=== PATIENT | female | born 1995 | race African-American/Black ===

== ENCOUNTER 2023-02-10 08:57 | Outpatient (AMB) | payer MEDICAID, SELFPAY ==
--- NOTE | 2023-02-10 08:59 | A.OFFVIS_ITS ---
Intake Vital Signs 02/10/23 09:02 Height 5 ft 6 in Weight 181 lb 7.047 oz BMI 29.3 BP 114/84 Blood Pressure Location Lt brachial Position Sitting Pulse 106 H Pulse Source Pulse Oximeter Intake Visit Reasons: T1DM/LVM Intake Note: New patient present today for Diabetes Mellitus. Referred by PCP Last Diabetic Eye exam: 2020 Last Podiatry Visit: None Random Glucose: 137 mg/dl HgA1C: 11.2% Sports Anchor Required: No Accompanied by: Self / Same As Patient Allergies tomato [TOMATO] Allergy (Intermediate, Verified 02/10/23 09:03) FACIAL SWELLING/ITCHY THROAT Medication List - Last Reconciled 02/10/23 by Elvin Calderon MD blood-glucose sensor (Dexcom G7 Sensor device) As directed change every 10 days insulin glargine (Lantus Solostar U-100 Insulin) 22 units subcut QPM pen needle, diabetic (BD Ultra-Fine Cadence Pen Needle) As directed phentermine 15 mg PO QAM HPI HPI Comments History of Present Illness Details 27 YO F with is seen in consultation for T1DM at the request of PCP. Initially diagnosed with T1DM in 6 yrs when presented with DKA . Was initially started on treatment with []. Current regimen: Lantus 22 units Humalog 150-200 2 units up to 10 units Per the CGM Kostas is active % of time . . Avg glucose is 28 . Variability of 35 The patient's blood sugars were in target 13% of the time, above target 84% of the time, and below target 3% of the time Most recent A1C: 11.2 Reports low sugars once a wk . Treats lows with eats something . Checks sugar after to ensure it is rising. Checks 2 hours after No Family history of autoimmunity Has eyes checked yearly, last eye exam 2020 . Needs to make appt , No retinopathy. Denies neuropathy, last foot exam [], sees podiatry. Denies nephropathy, Not on PRO/ARB. . Not Has HLD, Not on statin. Denies history of CAD. Had diabetes education many yrs a go . Diet/Carb counting: No Denies prior episodes of DKA. Not Has prior severe episodes of hypoglycemia requiring help or hospitalization. Labs: [facility] Medical History (Updated 02/10/23 @ 09:04 by Elvin Calderon MD) Uncontrolled type 1 diabetes mellitus with hyperglycemia, with long-term current use of insulin Family History (Updated 02/10/23 @ 09:17 by Herlinda Ayala) Mother No problems noted. Father Hypertension Social History (Updated 02/10/23 @ 09:14 by Herlinda Ayala) Alcohol intake: current Alcohol intake frequency: holidays/special occasions only Substance Use Type: Marijuana Physical Exam Vital Signs: Last Vital Signs Pulse 106 H 02/10/23 09:02 BP 114/84 02/10/23 09:02 BMI result Body Mass Index 29.3 Absence of Cushingoid features. Absence of acromegalic features. Neck exam reveals nl size thyroid about 15 gms. No thyroid nodules palpable. No carotid bruits present. Lungs CTA. Heart S1 S2, Reg R/R. No M/R/ G. Skin exam reveals absence of vitiligo or acanthosis nigricans. Abdominal exam reveals Soft NT/ND with NA BS. No organomegaly present. Extrem Other: Visual exam of foot performed. No ulcerations or open lesions. No onchomycosis, no callouses.Pulses 2 + distally. Sensation intact to monofilament exam. Vibratory sensation sensed 10 seconds in right, 10 seconds in left with 128 Hz tuning fork Results AMB Hemoglobin A1c AMB Hemoglobin A1c 11.2 % Last Edit by Herlinda Ayala on 02/10/23 09:22 Results Reviewed Results Reviewed: 02/10/23 09:11 Glucose, Whole Blood Routine Laboratory Last Values Glucose (Clinic) 137 mg/dL (60-115) H 02/10/23 09:11 Hgb A1c (Clinic) 11.2 % (4.0-6.0) H 02/10/23 09:17 Assessment & Plan Assessment & Plan (1) Uncontrolled type 1 diabetes mellitus with hyperglycemia, with long-term current use of insulin: Code(s): E10.65 - Type 1 diabetes mellitus with hyperglycemia Plan: This is a 27-year-old female with history of type 1 diabetes being treated with basal insulin with poor glycemic control and no known microvascular or macrovascular complications. Plan is to switch the Kostas to Dexcom G7. Could not make any changes the patient's insulin regimen because there was not enough data. Went over the benefits of using a pump explained different pumps. . Will also send to critical care educator and extrusion die template maker. Explained to patient relationship poor glycemic control development progression complications Orders: Orders AMB Hemoglobin A1c Today E10.65 - Type 1 diabetes mellitus with hyperglycemia Referrals Diabetes Education Referral E10.65 - Type 1 diabetes mellitus with hyperglycemia Nutrition/Dietitian Referral E10.65 - Type 1 diabetes mellitus with hyperglycemia Medications: New blood-glucose sensor (Dexcom G7 Sensor device) As directed change every 10 days 3 ea 4RF Coding Level of Care Code New Pt Level 5 (59276) Diagnoses Uncontrolled type 1 diabetes mellitus with hyperglycemia, with long-term current use of insulin E10.65 Time Spent (min) 60 Comment A total of 60 minutes was spent reviewing chart, seeing patient and dictating
[2023-02-10 09:02] VITALS: BP 114/84; PULSE 106; BMI 29.3
[2023-02-10 09:15] LABS: Glucose, Whole Blood 137 mg/dL (60-115)
== END 2023-02-10 10:00 | disposition home or self-care (01) ==
PROVIDERS: PCP Family Medicine; Referring Provider Family Medicine; Visit Provider Internal Medicine Endocrinology, Diabetes & Metabolism
DX: E10.65 Type 1 diabetes mellitus with hyperglycemia (principal); Z79.4 Long term (current) use of insulin
CPT/HCPCS: 99205

== ENCOUNTER → 2023-02-10 08:57 | Outpatient (BNVA) | payer MEDICAID, SELFPAY | PROVIDERS: Visit Provider Internal Medicine Endocrinology, Diabetes & Metabolism | DX: E10.65 Type 1 diabetes mellitus with hyperglycemia (principal); Z79.4 Long term (current) use of insulin | CPT/HCPCS: 82947; 83036; 99202 ==

== ENCOUNTER 2023-11-01 11:20 | Outpatient (AMB) | payer SELFPAY ==
--- NOTE | 2023-11-01 11:21 | A.OFFVIS_ITS ---
Vital Signs 11/01/23 11:22 Height 5 ft 6 in Weight 181 lb 10.574 oz BMI 29.3 BP 128/90 H Blood Pressure Location Lt brachial Position Sitting Pulse 86 Pulse Source Pulse Oximeter Intake Visit Reasons: T1DM/LVM Intake Note: Patient presents today to follow up on D1MT. Last Diabetic Eye exam: Over a year Last Podiatry Visit: Doesn't have one Random Glucose: 338 mg/dl HgA1c: 10.0% Cage Operator Required: No Accompanied by: Self / Same As Patient Allergies tomato [TOMATO] Allergy (Intermediate, Verified 11/01/23 11:27) FACIAL SWELLING/ITCHY THROAT Medication List - Last Reconciled 11/01/23 by Elvin Claderon MD blood-glucose sensor (Dexcom G7 Sensor device) As directed change every 10 days ibuprofen mg PO insulin glargine (Lantus Solostar U-100 Insulin) 22 units subcut QPM insulin lispro subcut pen needle, diabetic (BD Ultra-Fine Cadence Pen Needle) As directed phentermine 15 mg PO QAM HPI Comments Details: 28 YO F with is seen in consultation for T1DM at the request of PCP. Initially diagnosed with T1DM in 6 yrs when presented with DKA . Was initially started on treatment with []. Current regimen: Lantus 22 units Humalog 150-200 2 units up to 10 units Unfortunately, patient did not bring sensor, glucometer or meter with her to follow-up visit Reports low sugars once a wk . Infreqently Treats lows with eats something . Checks sugar after to ensure it is rising. Checks 2 hours after No Family history of autoimmunity Has eyes checked yearly, last eye exam . Needs to make appt , No retinopathy. Denies neuropathy, last foot exam [], sees podiatry. Denies nephropathy, Not on PRO/ARB. . Not Has HLD, Not on statin. Denies history of CAD. Had diabetes education many yrs a go . Needs to make appt Diet/Carb counting: No Denies prior episodes of DKA. Not Has prior severe episodes of hypoglycemia requiring help or hospitalization. Labs: [facility] Medical History (Updated 02/10/23 @ 09:04 by Elvin Calderon MD) Uncontrolled type 1 diabetes mellitus with hyperglycemia, with long-term current use of insulin Family History (Updated 02/10/23 @ 09:17 by CHRISTOPHER Valladares) Mother No problems noted. Father Hypertension Social History (Updated 02/10/23 @ 09:14 by CHRISTOPHER Valladares) Alcohol intake: current Alcohol intake frequency: holidays/special occasions only Substance Use Type: Marijuana Physical Exam Vital Signs: Last Vital Signs Pulse 86 11/01/23 11:22 BP 128/90 H 11/01/23 11:22 BMI result Body Mass Index 29.3 Absence of Cushingoid features. Absence of acromegalic features. Neck exam reveals nl size thyroid about 15 gms. No thyroid nodules palpable. No carotid bruits present. Lungs CTA. Heart S1 S2, Reg R/R. No M/R/ G. Skin exam reveals absence of vitiligo or acanthosis nigricans. Abdominal exam reveals Soft NT/ND with NA BS. No organomegaly present. Extrem Other: Visual exam of foot performed. No ulcerations or open lesions. No onchomycosis, no callouses.Pulses 2 + distally. Sensation intact to monofilament exam. Vibratory sensation sensed 10 seconds in right, 10 seconds in left with 128 Hz tuning fork Results AMB Hemoglobin A1c AMB Hemoglobin A1c 10.0 % Last Edit by CHRISTOPHER Valladares on 11/01/23 11:39 Results Reviewed Results Reviewed: Laboratory Last Values Glucose (Clinic) 338 mg/dL (60-115) H 11/01/23 11:29 Assessment & Plan Assessment & Plan (1) Uncontrolled type 1 diabetes mellitus with hyperglycemia, with long-term current use of insulin: Code(s): E10.65 - Type 1 diabetes mellitus with hyperglycemia Category: Medical Plan: This is a 28-year-old female with history of type 1 diabetes being treated with basal insulin with poor glycemic control and no known microvascular or macrovascular complications. Plan is to have the patient resume sensory use.. Could not make any changes the patient's insulin regimen because there was no data. I renewed her Dexcom G7 sensor Went over the benefits of using a pump explained different pumps. . Will also send to homicide detective and solar/renewable energy sales. Explained to patient relationship poor glycemic control development amd progression complications Orders: Orders Microalbumin, Random (w Creat) Today E10.65 - Type 1 diabetes mellitus with hyperglycemia AMB Hemoglobin A1c Today E10.65 - Type 1 diabetes mellitus with hyperglycemia, Z13.9 - Encounter for screening, unspecified Lipid Panel Today E10.65 - Type 1 diabetes mellitus with hyperglycemia Medications: Refilled blood-glucose sensor (Dexcom G7 Sensor device) As directed change every 10 days 3 ea 5RF Coding Level of Care Code Est Pt Level 4 (23113) Diagnoses Uncontrolled type 1 diabetes mellitus with hyperglycemia, with long-term current use of insulin E10.65
[2023-11-01 11:22] VITALS: BP 128/90; PULSE 86; BMI 29.3
[2023-11-01 11:33] LABS: Glucose, Whole Blood 338 mg/dL (60-115)
== END 2023-11-01 11:40 | disposition home or self-care (01) ==
PROVIDERS: PCP Family Medicine; Visit Provider Internal Medicine Endocrinology, Diabetes & Metabolism
DX: Z13.9 Encounter for screening, unspecified (principal); E10.65 Type 1 diabetes mellitus with hyperglycemia
CPT/HCPCS: 99214

== ENCOUNTER → 2023-11-01 11:20 | Outpatient (BNVA) | payer OTHER, SELFPAY | PROVIDERS: PCP Family Medicine; Visit Provider Internal Medicine Endocrinology, Diabetes & Metabolism | DX: E10.65 Type 1 diabetes mellitus with hyperglycemia (principal); Z79.4 Long term (current) use of insulin | CPT/HCPCS: 82947; 83036; 99212 ==

== ENCOUNTER 2024-05-10 08:40 | Outpatient (AMB) | payer MEDICAID, SELFPAY ==
--- NOTE | 2024-05-10 07:10 | A.OFFVIS_ITS ---
Vital Signs 05/10/24 08:44 Height 5 ft 6 in Weight 172 lb 13.478 oz BMI 27.9 BP 112/74 Blood Pressure Location Lt brachial Position Sitting Pulse 87 Pulse Source Pulse Oximeter Intake Visit Reasons: T1DM/CONF Intake Note: Patient presents today for D1MT follow up visit. Last Diabetic Eye exam: 08/2023 Last Podiatry Visit: Doesn't have one Random Glucose: 58 mg/dl @ 8:51 am, 55 mg/dl 9:24 am, 93 mg/dl 9:43 am. Glucose tabs were given by provider. HgA1c: 9.4% Housekeeping/Laundry Supervisor Required: No Accompanied by: Self / Same As Patient Allergies tomato [TOMATO] Allergy (Intermediate, Verified 05/10/24 08:48) FACIAL SWELLING/ITCHY THROAT HPI Comments Details: 28 YO F with is seen in f/u for T1DM. She was last seen by Dr. Calderon 10/2023. Hemoglobin A1c 9.4 % 05/03/24, 01/04 10%. She has a long standing history of poorly controlled diabetes. On presentation to the clinic her glucose reading is 68 and she feels symptomatic. She was given 14 car grams of gingerale to drink at 8:54. Repeat glucose was:55 at 9:25 for which she took 3 glucose tablets. Repeat blood sugar was 93 and patient was asymptomatic. She has had some lower abdominal pain and was seen in the ER 6 days ago and started on antibiotics for UTI and symptoms are improving. She does not yet have f/u with her PCP. Initially diagnosed with T1DM at age 21 when she presented with DKA . Was initially started on treatment with insulin Current regimen: Lantus 22 units at night Humalog 2 units if she has a big meal Not taking very often not eating regularly last few days NO recent glucose checks Low glucose: this morning which she attributes to eating less one a few weeks ago Treats lows: eats something, she carries a sugar source Checks sugar after to ensure it is rising. No Family history of autoimmunity No retinopathy: Has eyes checked yearly, last eye exam 09/04. Has cataract surgery early 's Denies neuropathy, last foot exam today , does not see podiatry self care No recent labs in chart Denies nephropathy, Not on PRO/ARB. . Denies HLD, Not on statin. Denies history of CAD. Had diabetes education many yrs ago. Needs to make appt Diet/Carb counting: No carb counting Denies prior episodes of DKA. Not Has prior severe episodes of hypoglycemia requiring help or hospitalization. [facility] Medical History (Updated 02/10/23 @ 09:04 by Elvin Calderon MD) Uncontrolled type 1 diabetes mellitus with hyperglycemia, with long-term current use of insulin Family History (Updated 02/10/23 @ 09:17 by CHRISTOPHER Valladares) Mother No problems noted. Father Hypertension Social History (Updated 02/10/23 @ 09:14 by CHRISTOPHER Valladares) Alcohol intake: current Alcohol intake frequency: holidays/special occasions only Substance Use Type: Marijuana Physical Exam Vital Signs: Last Vital Signs Pulse 87 05/10/24 08:44 BP 112/74 05/10/24 08:44 BMI result Body Mass Index 27.9 Const Other: Absence of Cushingoid features. Absence of acromegalic features. Neck exam reveals nl size thyroid about 15 gms. No thyroid nodules palpable. No carotid bruits present. Lungs CTA. Heart S1 S2, Reg R/R. No M/R G. Skin exam reveals absence of vitiligo or acanthosis nigricans. No edema Visual exam of foot performed. No ulcerations or open lesions. No inter digit maceration or fissuring. No onychomycosis, no callouses. Sensation intact to monofilament exam. Vibratory sensation is normal with 128 Hz tuning fork. Results AMB Hemoglobin A1c AMB Hemoglobin A1c 9.4 % Last Edit by CHRISTOPHER Valladares on 05/10/24 09:00 Results Reviewed Results Reviewed: Laboratory Last Values Glucose (Clinic) 58 mg/dL (60-115) L* 05/10/24 08:50 Hgb A1c (Clinic) 9.4 % (4.0-6.0) H 05/10/24 08:53 Assessment & Plan Assessment & Plan (1) Uncontrolled type 1 diabetes mellitus with hyperglycemia, with long-term current use of insulin: Code(s): E10.65 - Type 1 diabetes mellitus with hyperglycemia Category: Medical Plan: 28-year-old type 2 diabetic with poorly controlled diabetes on basal bolus insulin. Change to Tresiba 20 units. Can restart humalog 2 units with meals. If sugara are running high can restart old scale 2-8 units. Start on FS kostas 3. Obtain labs toay The patient had an opportunity to ask questions regarding treatment plan. The patient expressed understanding and agreement with the above treatment plan. The patient is aware they should contact our office by phone for worsening glucose readings or for any low blood sugars which may warrant a change in diabetes medication. Compliance is encouraged with medications and any followup testing/consults which may have been ordered. Orders: Orders Basic Metabolic Panel Today E10.65 - Type 1 diabetes mellitus with hyperglycemia AMB Hemoglobin A1c Today E10.65 - Type 1 diabetes mellitus with hyperglycemia, Z13.9 - Encounter for screening, unspecified Lipid Panel Today E10.65 - Type 1 diabetes mellitus with hyperglycemia Microalbumin, Random (w Creat) Today E10.65 - Type 1 diabetes mellitus with hyperglycemia Creatinine Urine Today E10.65 - Type 1 diabetes mellitus with hyperglycemia Medications: New insulin degludec (Tresiba FlexTouch U-200 insulin) 20 units (0.1 mL) subcut BEDTIME 6 mL 11RF pen needle, diabetic (BD Cadence 2nd Gen Pen Needle) As directed qid 200 ea 11RF E10.65 - Type 1 diabetes mellitus with hyperglycemia insulin lispro (Humalog KwikPen (U-100) Insulin) 2-8 units pre meal 1 sliding scale dose subcut USEASDIRECTD 30 days 15 mL 6RF acetone (urine) test (Ketone Urine Test strips) As directed tid prn glucose over 250 prn nausea, vomiting 25 ea 2RF blood-glucose sensor (FreeStyle Kostas 3 Plus Sensor device) As directed every 15 days 2 ea 11RF Discontinued blood-glucose sensor (Dexcom G7 Sensor device) Discontinued Reason: Doctor's Order As directed change every 10 days 3 ea 5RF Patient Instructions: The patient was counseled to achieve a target A1C of 7% (154 avg). Fasting blood sugars should be 90-130 in the morning and less than 180 two hours after meals. Reviewed the relationship between poor diabetic control and the development of complications. The patient was counseled to always carry a source of sugar and on the rule of 15's: Take 3 glucose tablets and repeat again in 15 minutes if blood sugar is not in normal range. Continue to repeat every 15 minutes until blood sugar is normal. Symptoms of DKA (diabetic ketoacidosis): early: frequent urination, dry mouth, fatigue, feeling ill, severe symptoms: ketones in the urine, abdominal pain, nausea, vomiting and weakness. It is important to hydrate with sugar free liquids every 15-30 minutes and bring the sugars down to normal levels. If you are moderate or severe with ketones or unable to bring glucose to less than 200, go to the emergency room. Check your feet daily looking for any signs of infection, ulceration and seek medical attention if this occurs. Break in shoes gradually and do not wear open-toed shoes or walk barefooted. Coding Level of Care Code Est Pt Level 5 (32629) Complex EM visit Add On G2211 Diagnoses Uncontrolled type 1 diabetes mellitus with hyperglycemia, with long-term current use of insulin E10.65 Time Spent (min) 45 Comment Time spent reviewing labs/provider notes, face to face, chart doc
[2024-05-10 08:44] VITALS: BP 112/74; PULSE 87; BMI 27.9
[2024-05-10 08:55] LABS: Glucose, Whole Blood 58 mg/dL (60-115)
[2024-05-10 09:48] LABS: Glucose, Whole Blood 55 mg/dL (60-115)
[2024-05-10 09:48] LABS: Glucose, Whole Blood 93 mg/dL (60-115)
== END 2024-05-10 09:45 | disposition home or self-care (01) ==
PROVIDERS: PCP Family Medicine; Visit Provider Nurse Practitioner Adult Health
DX: Z13.9 Encounter for screening, unspecified (principal); E10.65 Type 1 diabetes mellitus with hyperglycemia
CPT/HCPCS: 99215

== ENCOUNTER → 2024-05-10 08:40 | Outpatient (BNVA) | payer MEDICAID, SELFPAY | PROVIDERS: PCP Family Medicine; Visit Provider Nurse Practitioner Adult Health | DX: E10.65 Type 1 diabetes mellitus with hyperglycemia (principal) | CPT/HCPCS: 82947; 83036; 99212 ==

== ENCOUNTER 2024-05-16 07:36 | Outpatient (AMB) | payer MEDICAID, SELFPAY ==
--- NOTE | 2024-05-16 07:13 | A.OFFVIS_ITS ---
Vital Signs 05/16/24 07:46 05/16/24 07:58 Height 5 ft 6 in Weight 169 lb 12.095 oz BMI 27.4 27.4 BP 116/70 Blood Pressure Location Rt brachial Position Sitting Pulse 85 Pulse Source Pulse Oximeter Intake Visit Reasons: T1DM/LVM Intake Note: Patient present today to follow up on Type 1 Diabetes Mellitus. Last Diabetic Eye exam: 08/2023 Last Podiatry Visit: Does not see a Hr Payroll Coordinator Most Recent HgA1C: 9.4% 05/10/24 Random Glucose: 159 mg/dL, Today Director Traffic And Planning Required: No Accompanied by: Self / Same As Patient Allergies tomato [TOMATO] Allergy (Intermediate, Verified 05/16/24 07:54) FACIAL SWELLING/ITCHY THROAT HPI Comments Details: 28 YO F with is seen in f/u for T1DM. She was last seen in the clinic one week ago at which time she was treated for a low glucose and she was changed to Tresiba insulin to prevent lows. Hemoglobin A1c 9.4 % 05/03/24, 01/04 10%. She has a long standing history of poorly controlled diabetes.asymptomatic. She had lower abdominal pain and was seen in the ER 2 weeks ago and started on antibiotics for UTI and symptoms are improving. She does not yet have f/u with her PCP. Initially diagnosed with T1DM at age 21 when she presented with DKA . Was initially started on treatment with insulin Current regimen: Tresiba 20 units at night Humalog 2 units if she has a big meal Not taking very often not eating regularly last few days Treats lows: eats something, she carries a sugar source Checks sugar after to ensure it is rising. No Family history of autoimmunity No retinopathy: Has eyes checked yearly, last eye exam 09/04. Has cataract surgery early 20's Denies neuropathy, last foot exam today , does not see podiatry self care No recent labs in chart Denies nephropathy, Not on PRO/ARB. . Denies HLD, Not on statin. Denies history of CAD. Had diabetes education many yrs ago. Needs to make appt Diet/Carb counting: No carb counting Denies prior episodes of DKA. Not Has prior severe episodes of hypoglycemia requiring help or hospitalization. [facility] Medical History (Updated 02/10/23 @ 09:04 by Elvin Calderon MD) Uncontrolled type 1 diabetes mellitus with hyperglycemia, with long-term current use of insulin Family History Mother No problems noted. Father Hypertension Social History Alcohol intake: current Alcohol intake frequency: holidays/special occasions only Substance Use Type: Marijuana Physical Exam Vital Signs: Last Vital Signs Pulse 85 05/16/24 07:46 BP 116/70 05/16/24 07:46 BMI result Body Mass Index 27.4 Absence of Cushingoid features. Absence of acromegalic features. Neck exam reveals nl size thyroid about 15 gms. No thyroid nodules palpable. No carotid bruits present. Lungs CTA. Heart S1 S2, Reg R/R. No M/R G. Skin exam reveals absence of vitiligo or acanthosis nigricans. No edema Visual exam of foot performed. No ulcerations or open lesions. No inter digit maceration or fissuring. No onychomycosis, no callouses. Sensation intact to monofilament exam. Vibratory sensation is normal with 128 Hz tuning fork. Results Reviewed Results Reviewed: Laboratory Last Values Glucose (Clinic) 159 mg/dL (60-115) H 05/16/24 07:49 Assessment & Plan Assessment & Plan (1) Uncontrolled type 1 diabetes mellitus with hyperglycemia, with long-term current use of insulin: Code(s): E10.65 - Type 1 diabetes mellitus with hyperglycemia Category: Medical Plan: 28-year-old type 1 diabetic with a long standing history of poorly controlled diabetes on basal bolus insulin and changed to Tresiba insulin last week to smooth out her numbers. The patient had an opportunity to ask questions regarding treatment plan. The patient expressed understanding and agreement with the above treatment plan. The patient is aware they should contact our office by phone for worsening glucose readings or for any low blood sugars which may warrant a change in diabetes medication. Compliance is encouraged with medications and any followup testing/consults which may have been ordered. Patient Instructions: The patient was counseled to achieve a target A1C of 7% (154 avg). Fasting blood sugars should be 90-130 in the morning and less than 180 two hours after meals. Reviewed the relationship between poor diabetic control and the development of complications. The patient was counseled to always carry a source of sugar and on the rule of 15's: Take 3 glucose tablets and repeat again in 15 minutes if blood sugar is not in normal range. Continue to repeat every 15 minutes until blood sugar is normal. Check your feet daily looking for any signs of infection, ulceration and seek medical attention if this occurs. Break in shoes gradually and do not wear open-toed shoes or walk barefooted. Coding Level of Care Code Est Pt Level 4 (89978) Complex EM visit Add On G2211 Diagnoses Uncontrolled type 1 diabetes mellitus with hyperglycemia, with long-term current use of insulin E10.65
[2024-05-16 07:46] VITALS: BP 116/70; PULSE 85; BMI 27.4
--- NOTE | 2024-05-16 07:54 | A.OFFVIS_ITS ---
Vital Signs 05/16/24 07:46 05/16/24 07:58 Height 5 ft 6 in Weight 169 lb 12.095 oz BMI 27.4 27.4 BP 116/70 Blood Pressure Location Rt brachial Position Sitting Pulse 85 Pulse Source Pulse Oximeter Intake Visit Reasons: T1DM/LVM Allergies tomato [TOMATO] Allergy (Intermediate, Verified 05/16/24 07:54) FACIAL SWELLING/ITCHY THROAT HPI Comments Details: 28 YO F with is seen in f/u for T1DM. She was last seen by Dr. Calderon 10/2023. Hemoglobin A1c 9.4 % 05/03/24, 01/04 10%. She has a long standing history of poorly controlled diabetes. She was seen 1 week ago at which time she was started on Tresiba insulin due to nocturnal hypoglycemia. Unfortunately she was not able to picker and sorter load and unload the prescription yet and we will check with the pharmacy today to determine if this is a prior authorization issue. She did start on a freestyle Kostas 3+ in his doing well with this she did have 1 mild low last night. Initially diagnosed with T1DM at age 21 when she presented with DKA . Was initially started on treatment with insulin Current regimen: Lantus 22 units at night Humalog 2 units if she has a big meal Not taking very often not eating regularly last few days NO recent glucose checks Low glucose: this morning Treats lows: eats something, she carries a sugar source Checks sugar after to ensure it is rising. No Family history of autoimmunity No retinopathy: Has eyes checked yearly, last eye exam 09/04. Has cataract surgery early 20's Denies neuropathy, last foot exam today , does not see podiatry self care No recent labs in chart Denies nephropathy, Not on PRO/ARB. . Denies HLD, Not on statin. Denies history of CAD. Had diabetes education many yrs ago. Needs to make appt Diet/Carb counting: No carb counting Denies prior episodes of DKA. Not Has prior severe episodes of hypoglycemia requiring help or hospitalization. [facility] Medical History (Updated 02/10/23 @ 09:04 by Elvin Calderon MD) Uncontrolled type 1 diabetes mellitus with hyperglycemia, with long-term current use of insulin Family History Mother No problems noted. Father Hypertension Social History Alcohol intake: current Alcohol intake frequency: holidays/special occasions only Substance Use Type: Marijuana Physical Exam Vital Signs: Last Vital Signs Pulse 85 05/16/24 07:46 BP 116/70 05/16/24 07:46 BMI result Body Mass Index 27.4 Const Other: Absence of Cushingoid features. Absence of acromegalic features. Normal S1-S2. No edema Quality Reporting (2019) Adult ([facility] ) Body Mass Index: 27.4 Assessment & Plan Assessment & Plan (1) Uncontrolled type 1 diabetes mellitus with hyperglycemia, with long-term current use of insulin: Code(s): E10.65 - Type 1 diabetes mellitus with hyperglycemia Category: Medical Plan: 28-year-old type 1 diabetic with a longstanding history of poorly controlled diabetes. She is now on a freestyle Kostas 3+ in her glucose readings have been in good control she did have 1 nocturnal low last night. She does have a prescription pending at the pharmacy for Tresiba which should smooth out her numbers. Until she is able to picker and sorter load and unload the new prescription she was asked to reduce her Lantus insulin from 22 units to 18 units and to start Tresiba 18. She can increase by 2 units until her morning sugars are less than 130. She will continue to use a glucose sensor and we will follow back up with me in 1 month's time The patient had an opportunity to ask questions regarding treatment plan. The patient expressed understanding and agreement with the above treatment plan. The patient is aware they should contact our office by phone for worsening glucose readings or for any low blood sugars which may warrant a change in diabetes medication. Compliance is encouraged with medications and any followup testing/consults which may have been ordered. Patient Instructions: The patient was counseled to achieve a target A1C of 7% (154 avg). Fasting blood sugars should be 90-130 in the morning and less than 180 two hours after meals. Reviewed the relationship between poor diabetic control and the development of complications. The patient was counseled to always carry a source of sugar and on the rule of 15's: Take 3 glucose tablets and repeat again in 15 minutes if blood sugar is not in normal range. Continue to repeat every 15 minutes until blood sugar is normal. Coding Level of Care Code Est Pt Level 4 (10959) Complex EM visit Add On G2211 Diagnoses Uncontrolled type 1 diabetes mellitus with hyperglycemia, with long-term current use of insulin E10.65
[2024-05-16 07:58] VITALS: BMI 27.4
[2024-05-16 07:59] LABS: Glucose, Whole Blood 159 mg/dL (60-115)
== END 2024-05-16 08:01 | disposition home or self-care (01) ==
PROVIDERS: PCP Family Medicine; Visit Provider Nurse Practitioner Adult Health
DX: E10.65 Type 1 diabetes mellitus with hyperglycemia (principal)
CPT/HCPCS: 99214

== ENCOUNTER → 2024-05-16 07:36 | Outpatient (BNVA) | payer MEDICAID, SELFPAY | PROVIDERS: PCP Family Medicine; Visit Provider Nurse Practitioner Adult Health | DX: E10.65 Type 1 diabetes mellitus with hyperglycemia (principal); Z79.4 Long term (current) use of insulin | CPT/HCPCS: 82947; 99212 ==

== ENCOUNTER 2024-06-28 09:42 | Outpatient (AMB) | payer MEDICAID, SELFPAY ==
--- NOTE | 2024-06-28 07:57 | A.OFFVIS_ITS ---
Vital Signs 06/28/24 09:48 Height 5 ft 6 in Weight 171 lb 15.369 oz BMI 27.8 BP 112/68 Blood Pressure Location Rt brachial Position Sitting Pulse 92 Pulse Source Pulse Oximeter Intake Visit Reasons: T1DM Intake Note: Patient present today to follow up on Type 1 Diabetes Mellitus. Last Diabetic Eye exam: 08/2023 Last Podiatry Visit: Does not see a Sales Team Recruiter Most Recent HgA1C: 9.4%, 05/10/2024 Random Glucose: 125 mg/dL, Today Plaster Mixer Required: No Accompanied by: Self / Same As Patient Allergies tomato [TOMATO] Allergy (Intermediate, Verified 06/28/24 09:49) FACIAL SWELLING/ITCHY THROAT Medication List - Last Reconciled 06/28/24 by Jackelyn Avila NP acetone (urine) test (Ketone Urine Test strips) As directed tid prn glucose over 250 prn nausea, vomiting blood-glucose sensor (FreeStyle Kostas 3 Plus Sensor device) As directed every 15 days insulin degludec (Tresiba FlexTouch U-200 insulin) 18 units subcut BEDTIME insulin degludec (Tresiba FlexTouch U-200 insulin) 18 units (0.09 mL) subcut BEDTIME 30 days insulin lispro (Humalog KwikPen (U-100) Insulin) 1 sliding scale dose subcut USEASDIRECTD 30 days pen needle, diabetic (BD Ultra-Fine Cadence Pen Needle) As directed pen needle, diabetic (BD Cadence 2nd Gen Pen Needle) As directed qid HPI Comments Details: 29 YO F with is seen in f/u for T1DM. She was last seen by myself on 05/16/[address] Calderon 10/2023. Hemoglobin A1c 9.4 % 05/03/24, 01/04 10%. She has a long standing history of poorly controlled diabetes. Initially diagnosed with T1DM at age 21 when she presented with DKA . Was initially started on treatment with insulin. Current regimen: tresiba 20 units dropped to 18 2 days ago Humalog per sliding scale mainly 1-2 before each meal her glucose has been in normal range. Low glucose: She had been having some lows in the middle of the night to the 50 's, she had adjusted her insulin Tresiba to 18 units in the says improved Sensor fell off and she does not have phone with her today. Reports glucose has improved Treats lows: eats something, she carries a sugar source Checks sugar after to ensure it is rising. No Family history of autoimmunity No retinopathy: Has eyes checked yearly, last eye exam 09/04. Has cataract surgery early she will scheduled Denies neuropathy, last foot exam today , does not see podiatry self care No recent labs in chart Denies nephropathy, Not on PRO/ARB. . Denies HLD, Not on statin. Denies history of CAD. Had diabetes education many yrs ago. Diet/Carb counting: She reports she has improved her diet in his following a much more balanced meal plan Recently joined [employer] Had DKA at the time of diagnosis none since aware protocol and has ketone test strips Not Has prior severe episodes of hypoglycemia requiring help or hospitalization. [facility] Medical History (Updated 02/10/23 @ 09:04 by Elvin Calderon MD) Uncontrolled type 1 diabetes mellitus with hyperglycemia, with long-term current use of insulin Surgical History (Updated 06/28/24 @ 10:00 by CHRISTOPHER Vickers) History of surgery Family History Mother No problems noted. Father Hypertension Social History Alcohol intake: current Alcohol intake frequency: holidays/special occasions only Substance Use Type: Marijuana Physical Exam Vital Signs: Last Vital Signs Pulse 92 06/28/24 09:48 BP 112/68 06/28/24 09:48 BMI result Body Mass Index 27.8 Const Other: Absence of Cushingoid features. Absence of acromegalic features. Neck exam reveals nl size thyroid about 15 gms. No thyroid nodules palpable. No carotid bruits present. Lungs CTA. Heart S1 S2, Reg R/R. No M/R G. Skin exam reveals absence of vitiligo or acanthosis nigricans. No edema Visual exam of foot performed. No ulcerations or open lesions. No inter digit maceration or fissuring. No onychomycosis, no callouses. Sensation intact to monofilament exam. Vibratory sensation is normal with 128 Hz tuning fork. Positive pulse unable to check capillary refill due to nail Bengali Assessment & Plan Assessment & Plan (1) Uncontrolled type 1 diabetes mellitus with hyperglycemia, with long-term current use of insulin: Code(s): E10.65 - Type 1 diabetes mellitus with hyperglycemia Category: Medical Plan: Uncontrolled type 1 diabetes on basal bolus insulin most recent A1c 05/10/2024 9.4%. She reports her numbers have improved substantially since changing her diet and we will be starting to exercise at [employer]. She has lowered Tresiba to 18 units due to lows at night New dosing Tresiba 18 units Humalog per sliding scale The patient had an opportunity to ask questions regarding treatment plan. The patient expressed understanding and agreement with the above treatment plan. The patient is aware they should contact our office by phone for worsening glucose readings or for any low blood sugars which may warrant a change in diabetes medication. Compliance is encouraged with medications and any followup testing/consults which may have been ordered. Advised to have fasting blood work and urine test Medications: Changed From insulin degludec (Tresiba FlexTouch U-200 insulin) 18 units subcut BEDTIME To insulin degludec (Tresiba FlexTouch U-200 insulin) 18 units (0.09 mL) subcut BEDTIME 30 days 9 mL 11RF Refilled blood-glucose sensor (FreeStyle Kostas 3 Plus Sensor device) As directed every 15 days 2 ea 11RF Patient Instructions: The patient was counseled to always carry a source of sugar and on the rule of 15's: Take 3 glucose tablets and repeat again in 15 minutes if blood sugar is not in normal range. Continue to repeat every 15 minutes until blood sugar is normal. Symptoms of DKA (diabetic ketoacidosis): early: frequent urination, dry mouth, fatigue, feeling ill, severe symptoms: ketones in the urine, abdominal pain, nausea, vomiting and weakness. It is important to hydrate with sugar free liquids every 15-30 minutes and bring the sugars down to normal levels. If you are moderate or severe with ketones or unable to bring glucose to less than 200, go to the emergency room. Check your feet daily looking for any signs of infection, ulceration and seek medical attention if this occurs. Break in shoes gradually and do not wear open-toed shoes or walk barefooted. The patient was counseled to always carry a source of sugar and on the rule of 15's: Take 3 glucose tablets and repeat again in 15 minutes if blood sugar is not in normal range. Continue to repeat every 15 minutes until blood sugar is normal. Coding Level of Care Code Tele Est Pt Level 4 (93520) Complex EM visit Add On G2211 Diagnoses Uncontrolled type 1 diabetes mellitus with hyperglycemia, with long-term current use of insulin E10.65 Time Spent (min) 30 Comment Time spent reviewing labs/provider notes, face to face, chart doc
[2024-06-28 09:48] VITALS: BP 112/68; PULSE 92; BMI 27.8
[2024-06-28 10:00] LABS: Glucose, Whole Blood 125 mg/dL (60-115)
== END 2024-06-28 10:16 | disposition home or self-care (01) ==
PROVIDERS: PCP Family Medicine; Visit Provider Nurse Practitioner Adult Health
DX: E10.65 Type 1 diabetes mellitus with hyperglycemia (principal)
CPT/HCPCS: 99214

== ENCOUNTER → 2024-06-28 09:42 | Outpatient (BNVA) | payer MEDICAID, SELFPAY | PROVIDERS: PCP Family Medicine; Visit Provider Nurse Practitioner Adult Health | DX: E10.65 Type 1 diabetes mellitus with hyperglycemia (principal); Z79.4 Long term (current) use of insulin | CPT/HCPCS: 82947 ==

== ENCOUNTER 2024-10-12 14:27 | Outpatient (AMB) | payer MEDICAID, SELFPAY ==
[2024-10-12 14:27] VITALS: BP 106/78; PULSE 76; O2SAT 98; BMI 27.0
--- NOTE | 2024-10-12 14:27 | A.OFFVIS_ITS ---
Vital Signs 10/12/24 14:27 Height 5 ft 6 in Weight 167 lb 8.821 oz BMI 27.0 BP 106/78 Blood Pressure Location Rt brachial Position Sitting Pulse 76 Pulse Source Pulse Oximeter Pulse Oximetry (%) 98 Oxygen Delivery Method Room Air Intake Visit Reasons: DM Intake Note: Patient present today to follow up on Type 1 Diabetes Mellitus. Last Diabetic Eye exam: 08/2023 Last Podiatry Visit: Does not see a Chemical Etch Operator Most Recent HgA1C: 9.5%, 10/09/2024, PCP Random Glucose: 524 mg/dL, Today Architectural Modeler Required: No Accompanied by: Self / Same As Patient Allergies tomato [TOMATO] Allergy (Intermediate, Verified 06/28/24 09:49) FACIAL SWELLING/ITCHY THROAT HPI Comments Details: 29 YO F seen in f/u for T1DM. She was last seen 3 months ago. Hemoglobin A1c 10/09/24 9.5%, 9.4 % 05/03/24, 01/04 10%. She has a long standing history of poorly controlled diabetes. Initially diagnosed with T1DM at age 21 when she presented with DKA Was initially started on treatment with insulin. Current regimen: tresiba 20 units dropped to 18 2 days ago Humalog per sliding scale mainly 1-2 before each meal her glucose has been in normal range. Low glucose: She had been having some lows in the middle of the night to the 50 's, she had adjusted her insulin Tresiba to 18 units in the says improved Sensor fell off and she does not have phone with her today. Reports glucose has improved Treats lows: eats something, she carries a sugar source Checks sugar after to ensure it is rising. No Family history of autoimmunity No retinopathy: Has eyes checked yearly, last eye exam 09/04. Has cataract surgery early ' she will scheduled Denies neuropathy, last foot exam today , does not see podiatry self care No recent labs in chart Denies nephropathy, Not on PRO/ARB. . Denies HLD, Not on statin. Denies history of CAD. Had diabetes education many yrs ago. Diet/Carb counting: She reports she has improved her diet in his following a much more balanced meal plan Recently joined [employer] Had DKA at the time of diagnosis none since aware protocol and has ketone test strips Not Has prior severe episodes of hypoglycemia requiring help or hospitalization. [facility] Medical History (Updated 02/10/23 @ 09:04 by Elvin Calderon MD) Uncontrolled type 1 diabetes mellitus with hyperglycemia, with long-term current use of insulin Surgical History (Updated 06/28/24 @ 10:00 by CHRISTOPHER Vickers) History of surgery Family History Mother No problems noted. Father Hypertension Social History Alcohol intake: current Alcohol intake frequency: holidays/special occasions only Substance Use Type: Marijuana Physical Exam Vital Signs: Last Vital Signs Pulse 76 10/12/24 14:27 BP 106/78 10/12/24 14:27 Pulse Ox 98 10/12/24 14:27 Oxygen Delivery Method Room Air 10/12/24 14:27 BMI result Body Mass Index 27.0 Results UR Ketone Dip UR Ketone Dip Negative Last Edit by CHRISTOPHER Vickers on 10/12/24 14:47 Results Reviewed Results Reviewed: Laboratory Last Values Glucose (Clinic) 524 mg/dL (60-115) H* 10/12/24 14:33 Ur Ketones (Stick) Negative 10/12/24 14:42 Assessment & Plan Assessment & Plan Orders: Orders AMB Ketone Urine Dipstick Today E10.65 - Type 1 diabetes mellitus with hyperglycemia Coding
[2024-10-12 14:37] LABS: Glucose, Whole Blood 524 mg/dL (60-115)
--- OUTSIDE RECORDS SUMMARY | 2024-10-12 16:31 | XMS_ITS | Clinical Summary ---
Author Organization [facility] ity Address [address] [place] [address] Care Team Providers Care Crm Solution Architect Name Role Phone Unavailable Primary Care Provider Unavailabl e Social History Tobacco Use Types Packs/Day Years Used Date Smoking Tobacco: Never Assessed Comments Unknown Sex and Gender Information Value Date Recorded Sex Assigned at Not on file Legal Sex Female 1:38 PM EDT Gender Identity Not on file Sexual Orientation Not on file Plan of Treatment Health Maintenance Due Date Last Done Comments DTaP,Tdap,and Td Vaccines (1 - Tdap) 2014 Hepatitis B Vaccines (1 of 3 - 19+ 3-dose series) 2014 Cervical Cancer Screening: P ap Smear 2016 Depression Screening 01/05/2024 HIV Screening 01/05/2024 Hepatitis C Screening 01/05/2024 Social Influencers of Health Screening 01/05/2024 COVID-19 Vaccine (2023-2 5 season) 2024 Influenza Vaccine (Season Ended) 2025 HIB Vaccines Aged Out No longer eligi ble based on patient's age to complete this topic HPV Vaccines Aged Out No longer eligi ble based on patient's age to complete this topic Hepatitis A Vaccines Aged Out No long er eligible based on patient's age to complete this topic IPV Vaccines Aged Out No longer eligi ble based on patient's age to complete this topic MMR Vaccines Aged Out No longer eligi ble based on patient's age to complete this topic Meningococcal ACWY Vaccine Aged Out N o longer eligible based on patient's age to complete this topic Meningococcal B Vaccine Aged Out No l onger eligible based on patient's age to complete this topic Pneumococcal Vaccine: Pediat rics (0 to 5 Years) and At-Risk Patients (6 to 64 Years) Aged Out No longer eligible b ased on patient's age to complete this topic RSV Immunization Patients Un benigno 20 months Aged Out No longer eligible b ased on patient's age to complete this topic Varicella Vaccines Aged Out No longer eligible based on patient's age to complete this topic
--- OUTSIDE RECORDS SUMMARY | 2024-10-12 16:31 | XMS_ITS | Encounter Summary ---
Author Organization [employer] Address [address] [place] [address] Care Team Providers Care Civil Designer Name Role Phone Sharon Cristobal MD Primary Care Provider [phone] Encounter Details Date Type Department Care Team (Latest Contact Info) Description 10/09/2024 Travel Social History Tobacco Use Types Packs/Day Years Used Date Smoking Tobacco: Never Passive Smoke Exposure: Never Smokeless Tobacco: Never Alcohol Use Standard Drinks/Week Comments Never 0 (1 standard drink = 0.6 oz pur e alcohol) Depression Answer Date Recorded Patient Health Questionnaire-9 Score 17 10/09/2024 Patient Health Questionnaire-9 Score 17 10/09/2024 Last PHQ-9: Questionnaire Data Not on file 0 10/09/2024 Housing Stability Answer Date Recorded What is your housing situation today? I am not s ure 10/09/[address] you li ve. Do you have problems with any of the following? Water leaks 10/09/2024 Food Insecurity Answer Date Recorded Within the past 12 months, y ou worried that your food would run out before you got money to buy more: Sometimes True 2024 Within the past 12 months,th e food you bought just didn't last and you didn't have enough money to get more: Sometimes True 10/09/2024 Transportation Answer Date Recorded In the past 12 months, has l ack of transportation kept you from medical appts, meetings, work or from getting things needed for daily living? No 10/09/2024 Utilities Answer Date Recorded In the past 12 months, has t he electric, gas, oil or water company threatened to shut off services in your home? Yes 10/09/2024 Depression Answer Date Recorded Patient Health Questionnaire-2 Score 4 10/09/2024 Internet Access Answer Date Recorded Internet Access Q1 I am not sure 10/09/2024 Internet Access Q2 Not on file 10/09/2024 Comments No Sex and Gender Information Value Date Recorded Sex Assigned at Female 04/13/2022 10:21 AM EDT Legal Sex Female 10:21 AM EDT Gender Identity Female 05/21/2022 12:00 PM EST Sexual Orientation Straight 04/13/2022 10 :21 AM EDT documented as of this encounter Plan of Treatment Not on file documented as of this encounter Visit Diagnoses Not on filedocumented in this encounter Additional Health Concerns Assessment Noted Time PHQ-9 Depression Total Score: 17 025 2:06 PM EDT documented as of this encounter Care Teams Civil Designer Relationship Specialty Start Date End Date Sharon Cristobal MD [address] [place] [address] PCP - General Family Medicine 06/14/18 documented as of this encounter
--- OUTSIDE RECORDS SUMMARY | 2024-10-12 16:31 | XMS_ITS | Encounter Summary ---
Author Organization [employer] Address [address] [place] [address] [address] [place] [address] Care Team Providers Care Videotape Operator Name Role Phone Sharon Cristobal MD Primary Care Provider [phone] Encounter Details Date Type Department Care Team (Latest Contact Info) Description 10/09/2024 1:15 PM EDT Office Visit [facility] MEDICINE [address] [place] [address] [phone] Sharon Cristobal MD [address] [place], [place] [phone] Type 1 diabetes mellitus with hyperglycemia (CMS/HCC) (Primary Dx); Routine general medical examination at a health care facility; Routine screening for STI (sexually transmitted infection); Encounter for screening for respiratory tuberculosis; Dietary counseling; Exercise counseling; Overweight Social History Tobacco Use Types Packs/Day Years [...] AM EDT documented as of this encounter Last Filed Vital Signs Vital Sign Reading Time Taken Comments Blood Pressure 135/85 10/09/2024 1:29 PM EDT Pulse 86 10/09/2024 1:29 PM EDT Temperature 36.2 ??C (97.1 ??F) 10/09/2024 1:29 PM ED T Respiratory Rate 19 10/09/2024 1:29 PM EDT Oxygen Saturation - - Inhaled Oxygen Concentration - - Weight 76.1 kg (167 lb 12.8 oz) 10/09/2024 1:29 PM EDT Height 167.6 cm (5' 6 ) 10/09/2024 1:29 PM EDT Body Mass Index 27.08 10/09/2024 1:29 PM EDT documented in this encounter Miscellaneous Notes * Assessment & Plan Note - Danielle Bernard MA - 10/10/2024 10:42 PM EDT Associated Problem(s): Overweight - adjunct treatment with SGLT-2 inhibitor or GLP-1 agonist have not been approved by FDA - continue working on lifestyle modifications - concern for under-dosing insulin - will consult with her [facility]. * Assessment & Plan Note - Danielle Bernard MA - 10/09/2024 1:33 PM EDTAssociated Problem(s): Type 1 diabetes mellitus (CMS/[facility]) -Hgb A1C 9.5% on 10/09/24, improvement from 11.3% on 12/16/22 -fructosamine 503 umol/ml -Dx in December 2016 -Type 1 -09/21/22 OREN antibody > 250, IA-2 antibody 37.7, and Insulin autoantibody 2. All elevated. -Hx DKA in 2017 and 2020 -continue basal insulin: Lantus to 22 unis qhs -continue bolus insulin: Humalog correction scale, Starting 2 units for BG 100- 149, add 2 units forevery 50 mg/dl -continue working on lifestyle modifications. -improve adherence to diligent SMBG; discussed about CGM -referred to [facility] for CGM and insulin pump in 2020; referring again. -Last eye exam: Followed [facility], Dr. Moya, last seen in December 2019 -Last foot exam: 10/09/24, normal foot exam Last microalbumin test: 09/21/22 UACR 11 Last lipid profile: 09/21/22 TC 277; TG 200; HDL 44; LDL 149 Last dental exam: Up to date per pt Immunizations: Hep B completed, due for PCV20 and COVID bivalent - pt has an upcoming appt with her new [facility] to discuss insulin pump. Will check the status of CGM because she will need to have adequate data for Dr. Calderon to formulate management and insulin pump. documented in this encounter Plan of Treatment Scheduled Orders Name Type Priority Associated Diagnoses Orde r Schedule Syphilis Screen Lab Routine Routine screening for STI (sexually transmitted infection) Expected: 10/09/2024, Expires: 10/08/2025 Hepatitis C Antibody with Reflex to HCV, RNA, Quantitative, Real-Time PCR Lab Routine Routine screening for STI (sexually transmitted infection) Expected: 10/09/2024, Expires: 10/08/2025 Hepatitis B Surface Antibody, Qualitative Lab Routine Routine screening for STI (sexually transmitted infection) Expected: 10/09/2024, Expires: 10/08/2025 Hepatitis B Core Antibody, Total Lab Routine Routine screening for STI (sexually transmitted infection) Expected: 10/09/2024, Expires: 10/08/2025 Chlamydia/N. Gonorrhoeae RNA, TMA, Urogenitial Microbiology Routine Routine screening for STI (sexually transmitted infection) Expected: 10/09/2024, Expires: 10/08/2025 HIV-1/2 Antigen and Antibodies, Fourth Generation, with Reflexes Lab Routine Routine screening for STI (sexually transmitted infection) Expected: 10/09/2024, Expires: 10/08/2025 Hepatitis B surface antigen, EIA Lab Routine Routine screening for STI (sexually transmitted infection) Expected: 10/09/2024, Expires: 10/08/2025 Hepatitis A Antibody, Total Lab Routine Routine screening for STI (sexually transmitted infection) Expected: 10/09/2024, Expires: 10/08/2025 Comprehensive Metabolic Panel Lab Routine Type 1 diabetes mellitus with hyperglycemia (CMS/HCC) Expected: 10/09/2024, Expires: 10/08/2025 Albumin, Random Urine W/Creatinine Lab Routine Type 1 diabetes mellitus with hyperglycemia (CMS/HCC) Expected: 10/09/2024 (Approximate), Expires: 10/09/2025 Lipid Panel with Reflex to Direct LDL Lab Routine Type 1 diabetes mellitus with hyperglycemia (CMS/HCC) Expected: 10/09/2024, Expires: 10/08/2025 T-SPOT??.TB Lab Routine Encounter for screening for respiratory tuberculosis Expected: 10/09/2024 (Approximate), Expires: 10/09/2025 documented as of this encounter Procedures Procedure Name Priority Date/Time Associated Diagnosis Comments POCT GLYCOSYLATED HEMOGLOBIN (HGB A1C) Routine 10/09/2024 1:43 PM EDT Type 1 diabetes mellitus with hyperglycemia (CMS/HCC) POCT GLUCOSE Routine 10/09/2024 1:42 PM EDT Type 1 diabetes mellitus with hyperglycemia (CMS/HCC) documented in this encounter Results * (ABNORMAL) POCT glycosylated hemoglobin (Hgb A1c) (10/09/2024 1:43 PM EDT) Hemoglobin A1C 9.5(A) 4.0 - 6.0 % QC Media Lot # [id number] Lot# Expiration Date ,027 Blood Capillary blood specimen / Unknown 10/09/2024 1:43 PM EDT Sharon Cristobal MD POINT OF CARE TEST ENTER/EDIT OR DERABLES Final Result * (ABNORMAL) POCT glucose manually resulted (10/09/2024 1:42 PM EDT) Glucose Blood, POC 450(A) 60 - 200 mg/dL QC Media Lot # [id number] Lot# Expiration Date Blood Capillary blood specimen / Unknown 10/09/2024 1:42 PM EDT Result [facility] Sharon Cristobal MD POINT OF CARE TEST ENTER/EDIT OR DERABLES Final Result documented in this encounter Visit Diagnoses Diagnosis Type 1 diabetes mellitus with hyperglycemia (CMS/HCC)- Primary Routine general medical examination at a health care facility Routine screening for STI (sexually transmitted infection) Screening examination for venereal disease Encounter for screening for respiratory tuberculosis Dietary counseling Dietary surveillance and counseling Exercise counseling Overweight documented in this encounter Additional Health Concerns Assessment Noted Time PHQ-9 Depression Total Score: 17 025 2:06 PM EDT documented as of this encounter Care Teams Videotape Operator Relationship Specialty Start Date End Date Sharon Cristobal MD [address] [place] [phone] PCP - General Family Medicine 06/14/18 documented as of this encounter
--- OUTSIDE RECORDS SUMMARY | 2024-10-12 16:31 | XMS_ITS | Patient Health Record ---
Author Organization [facility] Address [address] [facility] [place] [address] Support Name Relationship Address Phone Thom Reese Emergency Contact Unknown [phone] Ju[address] Mendez Guarantor Unknown [phone] Reason For Referral No Information Social History Sex Assigned At : Social History Observation Description Sex Assigned At Female Plan Of Treatment No Information Insurance Providers Payer Name Payer Address Payer Phone Subscriber Number Group Number Insured Name Patient Relationship to Insured Coverage Start Date Coverage End Date [facility]id 19 [facility] [address] [id number] [employer] [place] [address] Juana Mendez Self - patient is the insured
--- OUTSIDE RECORDS SUMMARY | 2024-10-12 16:31 | XMS_ITS | Encounter Summary ---
Author Organization [employer] [facility] Address [address] [place] [address] [address] [place] [address] Care Team Providers Care Aircraft Log Clerk Name Role Phone Sharon Cristobal MD Primary Care Provider [phone] Encounter Details Date Type Department Care Team (Late st Contact Info) Description 08/26/2022 Telephone [facility] MEDICINE [address], [place] [phone] Sharon Cristobal MD [address] [place], [place] [phone] Social History Tobacco Use Types Packs/Day Years Used Date Smoking Tobacco: Never Assessed Comments No Sex and Gender Information Value Date Recorded Sex Assigned at Female 04/13/2022 10:21 AM EDT Legal Sex Female 10:21 AM EDT Gender Identity Female 05/21/2022 12:00 PM EST Sexual Orientation Straight 04/13/2022 10 :21 AM EDT COVID-19 Exposure Response Date Recorded In the last 10 days, have yo u been in contact with someone who was confirmed or suspected to have Coronavirus/COVID-19? No / Unsure 08/26/2022 10:59 AM EDT documented as of this encounter Plan of Treatment Not on file documented as of this encounter Visit Diagnoses Not on filedocumented in this encounter Care Teams Aircraft Log Clerk Relationship Specialty Start Date End Date Sharon Cristobal MD [address] [place] [address] [phone] PCP - General Family Medicine 06/14/18 documented as of this encounter
--- OUTSIDE RECORDS SUMMARY | 2024-10-12 16:31 | XMS_ITS | Clinical Summary ---
Author Organization [employer] Address [address] [place] [address] 7[address] [place] [address] Care Team Providers Care Marketing And Public Relations Manager Name Role Phone Sharon Cristobal MD Primary Care Provider [phone] Allergies Active Allergy Reactions Criticality Noted Date Comments Tomato 08/12/2023 Raw tomato Medications terbinafine (LamISIL) 250 MG tablet Take 1 tablet (250 mg) by mouth in the morning. 84 tablet 09/22/19 23 Active FreeStyle lancets 1 each by Other route 3 times daily. Check blood glucose 100 each 12 09/22/19 23 Active Blood Glucose Monitoring Suppl (FreeStyle Lite) w/Device kit 1 kit 3 times daily. 1 kit 1 09/22/19 23 Active FREESTYLE LITE test strip Check blood glucose 3 times daily 100 each 12 09/22/19 23 Active phentermine 15 MG capsule Take 1 capsule (15 mg) by mouth before breakfast. 30 capsule 2 12/17/19 23 Active Continuous Blood Gluc Service Order Taker (FreeStyle Kostas 2 [place]) device Use as directed 1 each 1 12/17/19 23 Active Continuous Blood Gluc Sensor (FreeStyle Kostas 2 Sensor) misc Use as directed 2 each 11 12/17/19 23 Active Alcohol Swabs (Easy Touch Alcohol Prep Medium) 70 % pads USE THREE TIMES DAILY 200 each 3 02/02/20 23 Active medroxyPROGESTERo ne (Depo-Provera) 150 MG/ML injectionIndicati ons:Encounter for other contraceptive management Inject 1 mL (150 mg) into the shoulder, thigh, or buttocks every 3 (three) months. Take to doctor's office for administration every 3 months 1 mL 3 06/21/19 24 Active insulin pen needle (BD Pen Needle Cadence U/F) 32G x 4 mm misc USE WITH LANTUS AND HUMALOG (LISPRO) 100 each 1 06/24/19 24 Active Lantus SoloStar 100 UNIT/ML pen INJECT 22 UNITS SUBCUTANEOUSLY EVERY EVENING 15 mL 11 04/25/20 24 Active insulin aspart FlexPen (NovoLOG) 100 UNIT/ML pen Administer insulin with meals, per sliding scale. BLOOD SUGAR 150-199 = 2 UNITS, 200-249 = 4 UNITS, 250-299 = 6 UNITS, 300-349 = 8 UNITS, 350+ = 10 UNITS 9 mL 11 08/03/19 25 Active Active Problems Problem Noted Date Diagnosed Date Impacted cerumen of right ear 08/12/2023 Assessment & Plan (08/12/2023 12:13 PM EST): Counseling done today Ear lavage done Health care maintenance 12/15/2022 Assessment & Plan (12/18/2022 9:23 AM EDT): Prevention - discussed about safety - reviewed safe sexual practice and family planning - reviewed mental and behavioral health Cancer screening - colon: Average risk, start at age per guideline - breast: Average risk, start at age per guideline - cervical: average risk, PAP on 12/16/22 - skin: low-average risk - lung: average risk Intimate partner violence screen - negative Immunization reviewed - recommended bivalent COVID and PCV20 Onychomycosis 09/21/2022 Assessment & Plan (09/21/2022 10:19 AM EDT): Will refer to Senior Production Manager -Rx Terbinafine orally -Pt to check Liver Function Test, 1 month after starting medication; pt will also be treated by Senior Production Manager Type 1 diabetes mellitus 01/25/2017 Assessment & Plan (10/09/2024 1:55 PM EDT): -Hgb A1C 9.5% on 10/09/24, improvement from 11.3% on 12/16/22 -fructosamine 503 umol/ml -Dx in December 2016 -Type 1 -09/21/22 OREN antibody > 250, IA-2 antibody 37.7, and Insulin autoantibody 2. All elevated. -Hx DKA in 2017 and 2020 -continue basal insulin: Lantus to 22 unis qhs -continue bolus insulin: Humalog correction scale, Starting 2 units for BG 100- 149, add 2 units for every 50 mg/dl -continue working on lifestyle modifications. -improve adherence to diligent SMBG; discussed about CGM -referred to record press operator for CGM and insulin pump in 2020; referring again. -Last eye exam: Followed by Eye and Dr. Griffin Castillo, last seen in December 2019 -Last foot exam: 10/09/24, normal foot exam Last microalbumin test: 09/21/22 UACR 11 Last lipid profile: 09/21/22 TC 277; TG 200; HDL 44; LDL 149 Last dental exam: Up to date per pt Immunizations: Hep B completed, due for PCV20 and COVID bivalent - pt has an upcoming appt with her new record press operator to discuss insulin pump. Will check the status of CGM because she will need to have adequate data for Dr. Calderon to formulate management and insulin pump. Assessment & Plan (12/18/2022 9:39 AM EDT): -Hgb A1C 11.3% on 12/16/22, worsened from 10.4% on 09/21/22 (HgbA1C 13% in August 2020) -fructosamine 503 umol/ml -Dx in December 2016 -Type 1 -09/21/22 OREN antibody > 250, IA-2 antibody 37.7, and Insulin autoantibody 2. All elevated. -Hx DKA in 2017 and 2020 -continue basal insulin: Lantus to 22 unis qhs -continue bolus insulin: Humalog correction scale, Starting 2 units for BG 100- 149, add 2 units for every 50 mg/dl -continue working on lifestyle modifications. -improve adherence to diligent SMBG; discussed about CGM -referred to record press operator for CGM and insulin pump in 2020; referring again. -Last eye exam: Followed by Eye and Dr. Griffin Castillo, last seen in December 2019 -Last foot exam: 09/21/22, onychomycosis, mildly impaired sensation Last microalbumin test: 09/21/22 UACR 11 Last lipid profile: 09/21/22 TC 277; TG 200; HDL 44; LDL 149 Last dental exam: Up to date per pt Immunizations: Hep B completed, due for PCV20 and COVID bivalent - pt has an upcoming appt with her new record press operator to discuss insulin pump. Will check the status of CGM because she will need to have adequate data for Dr. Calderon to formulate management and insulin pump. Assessment & Plan (09/25/2022 10:04 AM EDT): -Hgb A1C 10.4% on 09/21/22 (10.9% 12/30/20, HgbA1C 13% in August 2020) -Dx in December 2016 -Type is not determined yet. Currently treated as type 1. -Hx DKA in 2017 and 2020 -continue basal insulin: Lantus to 22 unis qhs -continue bolus insulin: Humalog correction scale, Starting 2 units for BG 100- 149, add 2 units for every 50 mg/dl -continue working on lifestyle modifications. -improve adherence to diligent SMBG; discussed about CGM -referred to record press operator for CGM and insulin pump in 2020; referring again. -Last eye exam: Followed by [facility], Dr. Moya, last seen in December 2019 -Last foot exam: 09/21/22, onychomycosis, mildly impaired sensation Last microalbumin test: Ordered today Last lipid profile: Ordered today Last dental exam: Up to date Immunizations: Up to date Overweight 03/25/2015 Assessment & Plan (10/10/2024 10:42 PM EDT): - adjunct treatment with SGLT-2 inhibitor or GLP-1 agonist have not been approved by FDA - continue working on lifestyle modifications - concern for under-dosing insulin - will consult with her record press operator. Assessment & Plan (12/18/2022 9:40 AM EDT): - adjunct treatment with SGLT-2 inhibitor or GLP-1 agonist have not been approved by FDA - continue working on lifestyle modifications - concern for under-dosing insulin - will consult with her record press operator. Resolved Problems Problem Noted Date Diagnosed Date Resolved Date Visit for gynecologic examination 12/15/2022 04/19/2023 Assessment & Plan (12/18/2022 9:24 AM EDT): Breast Health: average risk, self-breast exam Pelvic Health: average risk, PAP done today 12/16/22 Bone Health: average risk, weight-bearing exercise and adequate calcium intake Family Planning / Contraception: Depo-Provera Intimate partner violence screen: negative STI screen: Negative in the past; ordered today Immunizations: PCV20 and COVID19 bivalent Behavioral health: Encounters Date Type Department Care Team Description 10/09/2024 1:15 PM EDT Office Visit [facility] MED[facility]INE [address] [place] [id number] Sharon Cristobal MD Type 1 diabetes mellitus with hyperglycemia (CMS/HCC) (Primary Dx); Routine general medical examination at a health care facility; Routine screening for STI (sexually transmitted infection); Encounter for screening for respiratory tuberculosis; Dietary counseling; Exercise counseling; Overweight 10/09/2024 Patient Outreach [address] [address] Sharon Cristobal MD Care Coordination (CHW outreach for SDOH PT-1 and food needs-LVM ) 10/09/2024 Travel 09/27/2024 Patient Outreach [address] [address] Sharon Cristobal MD Pre-visit Planning (Pre visit planning LVM ) 09/20/[address] [address] Sharon Cristobal MD chart prep 08/25/2024 Population Health Risk Score [facility] () Department [address] [place] [id number] Provider, Population Health Generic 08/03/[address] [address] Sharon Cristobal MD from Last 3 Months Immunizations Name Administration Dates Next Due DTaP 04/08/2007, 2,06/15/2000,01/05 HPV, Quadrivalent 09/25/2009,07/31/2009 Hep A, ped/adol, 2 dose 09/11/2013,03/28/2010 Hep B, Adolescent or Pediatric 05/08/2003 Hep B, adult 11/14/2019,08/23/2019 IPV 05/13/2007, 7,05/30/2002,01/05 Influenza injectable quadriv alent IIV4 with preservative 04/22/2023,03/30/2016,03/25/2015 Influenza injectable quadriv alent preservative free 08/23/2019 Influenza, IIV3, injectable 03/28/2010 Influenza, Split (incl. scar fied surface antigen) 03/28/2013,03/24/2012 MMR 04/09/2003,05/30/2002 Meningococcal MCV4P ACYW-135 09/11/2013,07/31/19 10 Pfizer Covid-19 Vaccine 12+ 03/04/2021, Pneumococcal Conjugate PCV 20 10/09/2024 Pneumococcal Polysaccharide PPSV23 01/25/2017 Tdap 11/26/2020,09/11/2013 Varicella 05/13/2007,05/22/2003 Social History Tobacco Use Types Packs/Day Years Used Date Smoking Tobacco: Never Passive Smoke Exposure: Never Smokeless Tobacco: Never Tobacco Cessation:Counseling Given: Not Answered Alcohol Use Standard Drinks/Week Comments Never 0 [...] Orientation Straight 04/13/2022 10 :21 AM EDT Last Filed Vital Signs Vital Sign Reading Time Taken Comments Blood Pressure 135/85 10/09/2024 1:29 PM EDT Pulse 86 10/09/2024 1:29 PM EDT Temperature 36.2 ??C (97.1 ??F) 10/09/2024 1:29 PM ED T Respiratory Rate 19 10/09/2024 1:29 PM EDT Oxygen Saturation 100% 08/12/2023 11: 18 AM EST Inhaled Oxygen Concentration - - Weight 76.1 kg (167 lb 12.8 oz) 10/09/2024 1:29 PM EDT Height 167.6 cm (5' 6 ) 10/09/2024 1:29 PM EDT Body Mass Index 27.08 10/09/2024 1:29 PM EDT Plan of Treatment Health Maintenance Due Date Last Done Comments HIV Screening 1995 Diabetes: Foot Exam 2005 Eye Exam 2005 HPV Vaccines (3 - 2-dose series) 01/28/2010 09/25/2009, 07/31/2009 Family Planning (PISQ) 2010 Hepatitis C Screening 2013 Diabetes: Urine Protein Screening 09/22/2023 09/21/2022 Lipid Panel 09/22/2023 09/21/2022 COVID-19 Vaccine ( season) 2024 08/11/2021, 03/04/2021, 01/29/2021 Influenza Vaccine (#1) 2024 , 08/23/2019, 03/30/2016, Additional history exists Diabetes: Hemoglobin A1C 01/08/2025 025, 12/16/2022, 09/21/2022 Alcohol/Substance Use Screening 10/09/2025 10/09/2024 Depression Screening 10/09/2025 10/09/2024, 10/10/19 25 SDOH Screening 10/09/2025 10/09/2024 Tobacco Screening 10/09/2025 10/09/2024 Pap Smear 12/16/2025 12/16/2022 DTaP/Tdap/Td Vaccines (7 - Td or Tdap) 11/26/2030 11/26/2020, 09/11/2013, 04/08/2007, Additional history exists Zoster Vaccines (1 of 2) 2045 RSV Patients and Patients Aged 60 years or older (1 - 1-dose 75+ series) 2070 IPV Vaccines Completed 05/13/2007, 03/15, 05/30/2002, Additional history exists Hepatitis A Vaccines Completed 09/11/2013, 03/28/20 10 Meningococcal Vaccine Completed 09/11/2013, 010 Hepatitis B Vaccines Completed 11/14/2019, 08/23/2019, 05/08/2003 Pneumococcal Vaccine: Pediatrics (0 to 5 Years) and At-Risk Patients (6 to 49) Years) Completed 10/09/2024, 01/25/2017 HIB Vaccines Aged Out No longer eligi ble based on patient's age to complete this topic RSV under 20 months Aged Out No longe r eligible based on patient's age to complete this topic Rotavirus Vaccines Aged Out No longer eligible based on patient's age to complete this topic Procedures Procedure Name Priority Date/Time Associated Diagnosis Comments GLUCOSE, WHOLE BLOOD Routine 10/12/2024 2:33 PM EDT POCT GLYCOSYLATED HEMOGLOBIN (HGB A1C) Routine 10/09/2024 1:43 PM EDT Type 1 diabetes mellitus with hyperglycemia (CMS/HCC) POCT GLUCOSE Routine 10/09/2024 1:42 PM EDT Type 1 diabetes mellitus with hyperglycemia (CMS/HCC) IMAGE-GUIDED PAP W/AGE BASED SCR PROTOCOLS Routine 12/16/2022 9:57 AM EDT Visit for gynecologic examination ALBUMIN, RANDOM URINE W/CREATININE Routine 09/21/2022 10:24 AM EDT LIPID PANEL WITH REFLEX TO DIRECT LDL Routine 09/21/2022 10:24 AM EDT Type 1 diabetes mellitus with hyperglycemia (CMS/HCC) from Last 3 Months or Most Recently Relevant to Health Maintenance Results * (ABNORMAL) Glucose, Whole Blood (10/12/2024 2:33 PM EDT) Glucose, Whole Blood 524(HH) 60 - 115 mg/dL [facility] Comment:METER #: [id number] Testing performed in the Endocrinology Department [address] , [address], [facility]. 10/12/2024 2:33 PM EDT 10/12/2024 2:37 PM EDT us Generic External Data Provider LAB BLOOD ORDERAB LES Final Result [facility] [address] [place] [address] [phone] * (ABNORMAL) POCT glycosylated hemoglobin (Hgb A1c) (10/09/2024 1:43 PM EDT) Hemoglobin A1C 9.5(A) 4.0 - 6.0 % QC Media Lot # [id number] Lot# Expiration Date Blood Capillary blood specimen / Unknown 10/09/2024 1:43 PM EDT us Sharon Cristobal MD POINT OF CARE TEST ENTER/EDIT OR DERABLES Final Result * (ABNORMAL) POCT glucose manually resulted (10/09/2024 1:42 PM EDT) Glucose Blood, POC 450(A) 60 - 200 mg/dL QC Media Lot # [id number] Lot# Expiration Date [id number] Blood Capillary blood specimen / Unknown 10/09/2024 1:42 PM EDT us Sharon Cristobal MD POINT OF CARE TEST ENTER/EDIT OR DERABLES Final Result * Image-Guided Pap with Age-Based Screening Protocols (12/16/2022 9:57 AM EDT) Comment [facility] Comment: This order for age-based cervical cancer and STI screening follows ACOG guidelines(PB 168, 140, RDP737). See individual assays for performing site location. Clinical Information: None given [facility] LMP: NONE GIVEN [facility] Prev. PAP: NONE GIVEN [facility] Prev. BX: NONE GIVEN [facility] SOURCE: None given [facility] Statement Of Adequacy: [facility] Comment: Satisfactory for evaluation. Endocervical/transformation zone component absent. Interpretation/ Result: Cytology Results: Negative for intraepithelial lesion or malignancy. [facility] Infection Shift in vaginal melisa suggestive of bacterial vaginosis. [facility] COMMENT: This Pap test has been evaluated with computer assisted technology. [facility] Cytotechnolog[employer] t: [facility] Comment: [place], [place](ASCP) CT screening location: [address] ??[address] (Always Message) [facility] Comment: EXPLANATORY NOTE: The Pap is a screening test for cervical cancer. It is not a diagnostic test and is subject to false negative and false positive results. It is most reliable when a satisfactory sample, regularly obtained, is submitted with relevant clinical findings and history, and when the Pap result is evaluated along with historic and current clinical information. Swab 12/16/2022 9:57 AM EDT 12/17/2022 5:18 AM EDT us Sharon Cristobal MD LAB BLOOD ORDERABLES Final Resul t [facility] [address] [facility], [place] [address] [facility] [employer] [address] [place] [address] * (ABNORMAL) Lipid Panel with Reflex to Direct LDL (09/21/2022 10:24 AM EDT) Cholesterol, Total 227(H) <200 mg/dL [facility] HDL Cholesterol 44(L) > OR = 50 mg/dL [facility] Triglycerides 200(H) <150 mg/dL [facility] Comment: If a non-fasting specimen was collected, consider repeat triglyceride testing on a fasting specimen if clinically indicated. Harika et al. J. of Clin. Lipidol. 2015;9:129-169. LDL Cholesterol 149(H) mg/dL (calc) [facility] Comment: Reference range: <100 Desirable range <100 mg/dL for primary prevention; ?? <70 mg/dL for patients with CHD or diabetic patients with > or = 2 CHD risk factors. LDL-C is now calculated using the Curt-Rocha calculation, which is a validated novel method providing better accuracy than the Friedewald equation in the estimation of LDL-C. Curt SS et al. SAVAGE. 2013;310(19): 8513-9681 (http://education.Jamdat Mobile/faq/ROA411) Chol/HDLC Ratio 5.2(H) <5.0 (calc) [facility] Non-HDL Cholesterol 183(H) <130 mg/dL (calc) [facility] Comment: For patients with diabetes plus 1 major ASCVD risk factor, treating to a non-HDL-C goal of <100 mg/dL (LDL-C of <70 mg/dL) is considered a therapeutic option. 09/21/2022 10:2 4 AM EDT 09/21/2022 10:26 AM EDT Narrative [facility] - 09/26/2022 4:11 PM EDT FASTING:NO FASTING: NO us Sharon Cristobal MD LAB BLOOD ORDERABLES Final Resul t Performing Organization Address [facility] de Phone Number [facility] [address], [place] [address] [facility] [employer] [facility] [address] [place] [address] * Albumin, Random Urine W/Creatinine (09/21/2022 10:24 AM EDT) Creatinine, Random Urine 95 20 - 275 mg/dL [facility] Albumin, Urine 1.0 See Note: mg/dL [facility] Comment: Reference Range: Reference Range Not established Albumin/Creatinin e Ratio, Random Urine 11 <30 mcg/mg creat [facility] Comment: The ADA defines abnormalities in albumin excretion as follows: Albuminuria Category ?Result (mcg/mg creatinine) Normal to Mildly increased ?? <30 Moderately increased ? 30-299 Severely increased ? > OR = 300 The ADA recommends that at least two of three specimens collected within a 3-6 month period be abnormal before considering a patient to be within a diagnostic category. 09/21/2022 10:2 4 AM EDT 09/21/2022 10:26 AM EDT [facility] 09/26/2022 4:11 PM EDT FASTING:NO FASTING: NO Sharon Cristobal MD LAB URINE ORDERABLES Final Resul t Performing Organization Address [facility] Co de Phone Number [facility] [address], [place] [address] [employer] [facility] [address] [place] [address] from Last 3 Months or Most Recently Relevant to Health Maintenance [place] [address] [place] [address] Care Teams Marketing And Public Relations Manager Relationship Specialty Start Date End Date Sharon Cristobal MD [address] [place] [phone] PCP - General Family Medicine 06/14/18
--- OUTSIDE RECORDS SUMMARY | 2024-10-12 16:31 | XMS_ITS | Encounter Summary ---
Author Organization [employer] Address [address] [place] [address] [address] [place] [address] Care Team Providers Care Real Estate Inspector Name Role Phone Sharon Cristobal MD Primary Care Provider [phone] Reason for Visit * Reason Comments Care Coordination CHW outreach for SDO H PT-1 and food needs-LVM Encounter Details Date Type Department Care Team (Latest Contact Info) Description 10/09/2024 Patient Outreach [facility] MEDICINE [address] [place], [place] [phone] Sharon Cristobal MD [address] [place], [place] [phone] Care Coordination (CHW outreach for SDOH PT-1 and food needs-LVM ) Social History Tobacco Use Types Packs/Day Years [...] AM EDT documented as of this encounter Progress Notes * Rico Hernandez - 10/09/2024 3:10 PM EDT CHW Rico Hernandez, placed outbound call to patient for assistance with SDOH as a referral was placed by the provider. Patient had screened positive for the following SDOH insecurities. No answer atthis time. Patient's name and were not confirmed. CHW left detailed message and provided contact information requesting return call for assistance. Patient educated on extended clinic hours on Mondays through Wednesdays, and Walk-In Urgent Care Located in [facility]. Patient provided with after-hours line for [facility], , which offer night time triage service and option to transfer toon call provider if needed. documented in this encounter Plan of Treatment Not on file documented as of this encounter Visit Diagnoses Not on filedocumented in this encounter Additional Health Concerns Assessment Noted Time PHQ-9 Depression Total Score: 17 025 2:06 PM EDT documented as of this encounter Care Teams Real Estate Inspector Relationship Specialty Start Date End Date Sharon Cristobal MD [address] [place] [phone] PCP - General Family Medicine 06/14/18 documented as of this encounter
--- OUTSIDE RECORDS SUMMARY | 2024-10-12 16:31 | XMS_ITS | Encounter Summary ---
Author Organization [employer] [facility] Address [address] [place] [address] [address] [place] [address] Care Team Providers Care Learning Officer Name Role Phone Sharon Cristobal MD Primary Care Provider [phone] Reason for Visit * Reason Onset Date Comments Nurse Triage 08/12/2023 Prior Authorization 08/12/2023 Encounter Details Date Type Department Care Team ([facility] st Contact Info) Description 08/12/2023 Telephone [facility] MED[facility] [address] [place], [place] [phone] Sahron Cristobal MD [address] [place], [place] [phone] Nurse Triage; Prior Authorization Social History Tobacco Use Types Packs/Day Years Used Date Smoking Tobacco: Never Passive Smoke Exposure: Never Smokeless Tobacco: Never Alcohol Use Standard Drinks/Week Comments Never 0 (1 standard drink = 0.6 oz pur e alcohol) Depression Answer Date Recorded Patient Health Questionnaire-9 Score 0 09/21/2022 Housing Stability Answer Date Recorded What is your housing situation today? I have prabha aguilar 03/30/[address] you li ve. Do you have problems with any of the following? None of the above 03/30/2023 Food Insecurity Answer Date Recorded Within the past 12 months, y ou worried that your food would run out before you got money to buy more: Never True 03/30/2023 Within the past 12 months,th e food you bought just didn't last and you didn't have enough money to get more: Never True Transportation Answer Date Recorded In the past 12 months, has l ack of transportation kept you from medical appts, meetings, work or from getting things needed for daily living? No 03/30/2023 Utilities Answer Date Recorded In the past 12 months, has t he electric, gas, oil or water company threatened to shut off services in your home? No 03/30/2023 Depression Answer Date Recorded Patient Health Questionnaire-2 Score 0 09/21/2022 Comments No Sex and Gender Information Value Date Recorded Sex Assigned at Female 04/13/2022 10:21 AM EDT Legal Sex Female 10:21 AM EDT Gender Identity Female 05/21/2022 12:00 PM EST Sexual Orientation Straight 04/13/2022 10 :21 AM EDT documented as of this encounter Miscellaneous Notes * Telephone Encounter - Sharon Cristobal MD - 08/23/2023 5:26 PM EDT signed * Telephone Encounter - Sima Stanley - 08/23/2023 1:27 PM EDT PA FOR [employer] READER AND SENSOR GENERATED PLACED ON PCP DESK FOR REVIEW AND SIGNATURE. * Telephone Encounter - Ceasar Dawson - 08/12/2023 9:48 AM EST Tc from pt returning call regarding message prior. * Telephone Encounter - Debbi Hernandez - 08/12/2023 8:53 AM EST Symptom: Earache Outcome: Schedule an urgent appointment (within 1 hour) or talk to a nurse or provider soon Reason: Severe pain now The caller accepted this outcome documented in this encounter Plan of Treatment Not on file documented as of this encounter Visit Diagnoses Not on filedocumented in this encounter Additional Health Concerns Assessment Noted Time PHQ-9 Depression Total Score: 0 09/22/19 9:48 AM EDT documented as of this encounter Care Teams Learning Officer Relationship Specialty Start Date End Date Sharon Cristobal MD [address] [place] [address] PCP - General Family Medicine 06/14/18 documented as of this encounter
== END 2024-10-12 16:14 | disposition home or self-care (01) ==
LOC: HO.ENCR 14:27
PROVIDERS: PCP Family Medicine; Visit Provider Nurse Practitioner Adult Health
DX: E10.65 Type 1 diabetes mellitus with hyperglycemia (principal)

== ENCOUNTER → 2024-10-12 14:27 | Outpatient (BNVA) | payer MEDICAID, SELFPAY | PROVIDERS: PCP Family Medicine; Visit Provider Nurse Practitioner Adult Health | DX: E10.65 Type 1 diabetes mellitus with hyperglycemia (principal) | CPT/HCPCS: 81002; 82947; 99212 ==

== ENCOUNTER → 2024-10-16 09:37 | Outpatient (BNVA) | payer SELFPAY | PROVIDERS: PCP Family Medicine | DX: R76.11 Nonspecific reaction to tuberculin skin test without active tuberculosis (principal) ==